=== PATIENT | female | born 1990 | race Caucasian/White ===

== ENCOUNTER 2016-10-03 15:53 | Emergency (ER) | payer OTHER ==
[~2016-10-03] VITALS: Ht 154.9 cm; Wt 150.0 kg
[2016-10-03 16:37] LABS: EOSINOPHIL (%) 0.7 % (0-5); EOSINOPHIL COUNT 0.1 K/uL (0-0.3); HEMATOCRIT 41.1 % (36.0-46.0); IMMATURE GRANULOCYTE (%) 0.3 % (0.0-0.7); INSTRUMENT ABS NEUTROPHIL CT 7.2 K/uL; LYMPHOCYTE COUNT 1.7 K/uL (1.0-2.8); MCH 29.7 PG (29.0-34.0); MCHC 33.6 G/DL (30.0-36.0); MCV 88.6 FL (83-99); MEAN PLAT.VOLUME 8.8 uM^3 (9.5-12.4); MONOCYTE (%) 5.7 % (3-12); MONOCYTE COUNT 0.5 K/uL (0-0.8); NEUTROPHIL (%) 75.1 % (45-76); NEUTROPHIL COUNT 7.2 K/uL (1.8-6.4); PLATELET COUNT 352 K/uL (156-360); RBC DIS.WIDTH-CV 12.4 % (11.8-14.6); RBC DIS.WIDTH-SD 40.3 % (39-53); RED BLOOD COUNT 4.64 M/uL (3.80-5.20); WHITE BLOOD COUNT 9.5 K/uL (4.1-10.2)
[2016-10-03 16:48] LABS: CHLORIDE 105 mEq/L (99-109); SODIUM 139 mEq/L (136-147)
[2016-10-03 16:50] LABS: GLUCOSE 99 mg/dL (70-99)
[2016-10-03 16:51] LABS: ANION GAP 9 MEQ/L (2-14)
[2016-10-03 16:52] LABS: TOTAL BILIRUBIN 0.6 mg/dL (0.0-1.0)
[2016-10-03 16:54] LABS: ALKALINE PHOSPHATASE 69 IU/L (3-129); GFR ESTIMATE (CALCULATED) > 59 mL/min/
[2016-10-03 16:55] LABS: UREA NITROGEN (BUN) 11 mg/dL (9-23)
[2016-10-03 17:03] LABS: QUANTITATIVE HCG < 4.0 MIU/ML
[2016-10-03 17:31] VITALS: BP 122/87
[2016-10-03 17:32] LABS: LIPASE 58 U/L (1.0-51.0)
== END 2016-10-03 18:08 | disposition home or self-care (01) ==
LOC: EME 15:53 → EDBD 15:53 → EME 18:08
PROVIDERS: Emergency Medicine
DX: Z04.1 Encounter for examination and observation following transport accident (principal); G40.A09 Absence epileptic syndrome, not intractable, without status epilepticus; R00.0 Tachycardia, unspecified
CPT/HCPCS: 80053; 83690; 84702; 85025; 93005; 99281; 99285; J1170; J2060; J7030; J7050